=== PATIENT | male | born 1980 | race African-American/Black ===

== ENCOUNTER 2023-05-31 06:00 | Emergency (ER) | payer OTHER ==
[~2023-05-31] VITALS: Ht 167.6 cm; Wt 106.8 kg
[2023-05-31 06:05] VITALS: BP 130/100; RESP 18; O2SAT 98
[2023-05-31 06:43] LABS: Basophils # (auto) 0.1 10 ^3/uL (0-0.2); Basophils % (auto) 0.8 % (0.0-2.0); Eosinophils # (auto) 1.2 10 ^3/uL (0-0.8); Hemoglobin 13.1 g/dL (13.5-17.5); Lymphocytes # (auto) 2.2 10 ^3/uL (0.4-5.4); Lymphocytes % (auto) 21.2 % (10.0-50.0); Mean Corpuscular Hemoglobin 28.7 pg (28.0-32.0); Mean Corpuscular Hgb Conc. 32.9 g/dL (32.0-36.0); Mean Corpuscular Volume 87.3 fL (80.0-100.0); Monocytes # (auto) 0.9 10 ^3/uL (0-1.3); Monocytes % (auto) 8.4 % (0.0-12.0); Neutrophils # (auto) 6.2 10 ^3/uL (1.6-8.6); Neutrophils % (auto) 58.6 % (37.0-80.0); Nucleated Red Blood Cells % 0.1 %; Red Blood Cells 4.58 10^6/uL (4.5-5.90); Red Cell Distribution Width 13.8 % (11.8-14.3); White Blood Cell 10.6 10^3/uL (4.4-10.8)
[2023-05-31] MEDS ORDERED: ASPirin 81 mg TAB PO ONE (06:45)
[2023-05-31 07:06] VITALS: PULSE 76
[2023-05-31 07:59] LABS: Chloride 104 mmol/L (98-107); Potassium 3.9 mmol/L (3.5-5.1); Sodium 137 mmol/L (136-145)
[2023-05-31 08:00] LABS: Anion Gap 6 (5-15); Calcium 8.7 mg/dL (8.5-10.1); Carbon Dioxide 27 mmol/L (20-30)
[2023-05-31 08:05] LABS: BUN/Creatinine Ratio 9.1 (10.0-20.0); Blood Urea Nitrogen 10 mg/dL (9-23); Glucose 191 mg/dL (74-106)
== END 2023-05-31 09:15 | disposition left against medical advice (07) ==
LOC: ER 06:00
DX: R07.89 Other chest pain (principal); R79.1 Abnormal coagulation profile; F17.210 Nicotine dependence, cigarettes, uncomplicated; F12.10 Cannabis abuse, uncomplicated
CPT/HCPCS: 36415; 80048; 84484; 85025; 85379; 93005